=== PATIENT | female | born 1995 | race Caucasian/White ===

== ENCOUNTER 2018-10-14 06:42 | Emergency (ER) | payer OTHER ==
[~2018-10-14] VITALS: Ht 160 cm; Wt 76.2 kg
[~2018-10-14 06:42] MED LIST: SMZ-TMP DS 800-1 TAB PO
== END 2018-10-14 13:28 | disposition home or self-care (01) ==
LOC: ER 06:42
DX: M54.5 Low back pain (principal)

== ENCOUNTER 2020-07-28 07:25 | Emergency (ER) | payer OTHER ==
[~2020-07-28] VITALS: Ht 160 cm; Wt 77.1 kg
== END 2020-07-28 19:58 | disposition home or self-care (01) ==
LOC: ER 07:25
DX: R10.2 Pelvic and perineal pain (principal); R10.31 Right lower quadrant pain

== ENCOUNTER 2020-10-18 13:37 | Emergency (ER) | payer OTHER ==
[~2020-10-18] VITALS: Ht 160 cm; Wt 76.2 kg
[2020-10-18] MEDS ORDERED: NORFLEX100MG PO (16:12)
[2020-10-18] MEDS ORDERED: KETO10TA2 PO (16:12)
== END 2020-10-18 16:16 | disposition home or self-care (01) ==
LOC: ER 13:37
DX: M54.5 Low back pain (principal)

== ENCOUNTER 2024-07-21 11:05 | Emergency (ER) | payer OTHER ==
[~2024-07-21] VITALS: Ht 160 cm; Wt 80.7 kg
[~2024-07-21 11:05] MED LIST changes: +DUI500 PO; +FLUCONAZOLE150 MG PO; +KETO10TA2 PO; +METROGEL60 GM VAG; +METRONIDAZOLE500 MG PO; +NORFLEX100MG PO
[2024-07-21 13:24] LABS: HEMATOCRIT 44.4 % (36.0-45.00); HEMOGLOBIN 15.4 g/dL (12.0-15.00); MEAN CELL VOLUME 91.4 fL (80.00-100.00); MEAN CORPUSCULAR HEMOGLOBIN 31.8 pg (27.00-32.0); MEAN CORPUSCULAR HGB CONC 34.8 g/dl (32.0-36.0); PLATELET COUNT 261 K/uL (150-450); RED BLOOD COUNT 4.86 M/uL (4.00-6.00); RED CELL DISTRIBUTION WIDTH 12.6 % (11.5-14.5)
[2024-07-21] MEDS ORDERED: GILTUSS COUGH-118 M1 PO (16:05)
[2024-07-21] MEDS ORDERED: ZITHROMAX TRI-500 MG PO (16:05)
[2024-07-21] MEDS ORDERED: ACETAMINOPHEN500 M1 PO (16:05)
== END 2024-07-21 16:43 | disposition home or self-care (01) ==
LOC: ER 11:08
PROVIDERS: Preventive Medicine Public Health & General Preventive Medicine
DX: J06.9 Acute upper respiratory infection, unspecified (principal); Z20.822 Contact with and (suspected) exposure to COVID-19

== ENCOUNTER 2024-12-18 18:52 | Emergency (ER) | payer OTHER ==
[~2024-12-18] VITALS: Ht 160 cm; Wt 75.3 kg
[~2024-12-18 18:52] MED LIST changes: +ACETAMINOPHEN500 M1 PO; +GILTUSS COUGH-118 M1 PO; +ZITHROMAX TRI-500 MG PO
[2024-12-18] MEDS ORDERED: PEPCID AC20 MG PO (19:41)
[2024-12-18] MEDS ORDERED: AMOX-CLAV 875-1 EACH PO (19:41)
[2024-12-18] MEDS ORDERED: CEFTRIAXONE SODIUM 1,000 MG VIAL IM ONE (19:45)
[2024-12-18] MEDS ORDERED: KETOROLAC TROMETHAMINE 60 MG VIAL IM ONE (19:45)
[2024-12-18 20:44] VITALS: BP 117/78; O2SAT 99
== END 2024-12-18 20:46 | disposition home or self-care (01) ==
LOC: ER 19:02
DX: J03.90 Acute tonsillitis, unspecified (principal)